=== PATIENT | male | born 1980 | race Caucasian/White ===

== ENCOUNTER → 2018-12-19 14:49 | Outpatient (CLI) | payer SELFPAY ==
[2018-12-19 15:39] LABS: Basophils # 0.1 K/mm3 (0-0.2); Basophils % 1.3 % (0.1-2.0); Eosinophils # 0.2 K/mm3 (0.0-0.4); Eosinophils % 2.5 % (0.1-12.0); Hemoglobin 13.2 g/dL (14.1-18.0); Lymphocytes # 2.4 K/mm3 (0.7-4.5); Lymphocytes % 29.9 % (10-50); Mean Corpuscular HGB Conc 33.1 g/dL (31.8-35.4); Mean Corpuscular Hemoglobin 32.5 pg (27.0-31.2); Mean Corpuscular Volume 98.2 fl (80-94); Mean Platelet Volume 7.2 fl (7.4-10.4); Monocytes # 0.4 K/mm3 (0.1-1.0); Monocytes % 5.4 % (1.7-9.3); Neutrophils # 4.9 K/mm3 (1.8-7.8); Neutrophils % 60.9 % (37.0-80.0); Platelet Count 319 K/mm3 (142-424); Red Blood Count 4.07 M/mm3 (4.60-6.20); Red Cell Distribution Width 14.1 % (11.5-17.5)
[2018-12-19 15:48] LABS: Albumin Level 3.5 gm/dL (3.4-5.0); Albumin/Globulin Ratio 1.2 (1.1-1.8); Alkaline Phosphatase 46 U/L (46-116); Anion Gap 13.3 mEq/L (5-15); Bilirubin,Total 0.5 mg/dL (0.2-1.0); Blood Urea Nitrogen 14 mg/dL (7-18); CKMB Relative Index 0.4 U/L (0-4.0); Calcium 8.6 mg/dL (8.5-10.1); Carbon Dioxide 28 mmol/L (21.0-32.0); Chloride 101 mmol/L (98-107); Creatine Kinase 1435 U/L (39-308); Creatine Kinase MB 5.4 ng/ml (0.0-3.6); Creatinine,Serum 1.08 mg/dL (0.70-1.30); Estimated Glomerular Filt Rate 76 ml/min (>60); GFR (African American) 92 ML/MIN (>60); Glucose 112 mg/dL (74-106); Sodium 138 mmol/L (136-145); Total Protein,Serum 6.5 gm/dL (6.4-8.2); Troponin I < 0.02 ng/ml (0.00-0.06)
[2018-12-19 15:49] LABS: Potassium 4.3 mmoL/L (3.5-5.1)
[2018-12-19 15:59] LABS: Alanine Aminotransferase 29 U/L (12-78); Aspartate Amino Transferase 38 U/L (15-37)
== END ==
PROVIDERS: PCP Family Medicine; Visit Provider Physician Assistant
DX: R07.9 Chest pain, unspecified (principal)
CPT/HCPCS: 36415; 80053; 82550; 82553; 84484; 85025; 93005

== ENCOUNTER 2019-04-19 20:19 | Inpatient (IN) ==
[2019-04-19 20:43] LABS: Basophils # 0.1 K/mm3 (0-0.2); Basophils % 0.6 % (0.1-2.0); Eosinophils # 0.2 K/mm3 (0.0-0.4); Eosinophils % 1.8 % (0.1-12.0); Hematocrit 37.8 % (42.0-52.0); Lymphocytes # 2.5 K/mm3 (0.7-4.5); Lymphocytes % 24.9 % (10-50); Mean Corpuscular HGB Conc 31.9 g/dL (31.8-35.4); Mean Corpuscular Volume 97.9 fl (80-94); Mean Platelet Volume 7.5 fl (7.4-10.4); Monocytes # 0.4 K/mm3 (0.1-1.0); Monocytes % 3.5 % (1.7-9.3); Neutrophils # 6.9 K/mm3 (1.8-7.8); Neutrophils % 69.2 % (37.0-80.0); Platelet Count 329 K/mm3 (142-424); Red Blood Count 3.86 M/mm3 (4.60-6.20); Red Cell Distribution Width 13.7 % (11.5-17.5); White Blood Count 9.9 K/mm3 (4.8-10.8)
--- NOTE | 2019-04-19 20:44 | Emergency Department Note ---
ED Disposition Clinical Impression: ST elevation myocardial infarction (STEMI) Qualifiers: Involved coronary artery: unspecified coronary artery Qualified Code(s): I21.3 - ST elevation (STEMI) myocardial infarction of unspecified site Disposition: Admitted As Inpatient Condition on Discharge: Serious - Critical Care Critical Care Time: Yes Attestation: On , the high probability of a clinically significant, sudden or life threatening deterioration of the following system(s) required my full and direct attention, intervention and personal management. The time I documented below is in addition to time spent performing reported procedures but includes the following listed in this critical care notation. Total Critical Care Time: 60 Vital system(s) involved:: Circulatory Failure My critical care processes included: Assessment & monitoring of V/S, Initial and Re-exams, Data Review/Interpretation, Coordinating Care, Medication Orders and management, Documentation Medical Decision Making - Medical Records Medical records reviewed: Yes: I reviewed the patient's medical records. - [place] Inquiry Pt receiving controlled substance: No Vital Signs: 04/19/19 20:19 04/19/19 20:41 Temperature 98.3 F Temperature Source Oral Pulse Rate [Right Brachial] 96 H 92 H Respiratory Rate 18 18 Blood Pressure [Right Arm] 156/103 H 143/100 H Blood Pressure Mean [Right Arm] 120 114 Blood Pressure Source [Right Arm] Automatic Cuff Automatic Cuff Blood Pressure Position [Right Arm] Sitting Supine 02 Sat by Pulse Oximetry 96 90 L Oxygen Delivery Method Room Air Room Air - Lab Data Lab results reviewed: Yes: I reviewed the patient's lab results. Lab Results 04/19/19 20:20: WBC 9.9, RBC 3.86 L, Hgb 12.0 L, Hct 37.8 L, MCV 97.9 H, MCH 31.2, MCHC 31.9, RDW 13.7, Plt Count 329, MPV 7.5, Neut % (Auto) 69.2, Lymph % (Auto) 24.9, [place] % (Auto) 3.5, Eos % (Auto) 1.8, Baso % (Auto) 0.6, Neut # (Auto) 6.9, Lymph # (Auto) 2.5, [place] # (Auto) 0.4, Eos # (Auto) 0.2, Baso # (Auto) 0.1 04/19/19 20:20: Sodium 132 L, Potassium 3.7, Chloride 97 L, Carbon Dioxide 23, Anion Gap 15.7 H, BUN 14, Creatinine 1.19, Estimated Creat Clear 127, Estimated GFR 68, Est GFR ( Amer) 82, Glucose 143 H, Calcium 8.7, Troponin I 0.13 H 04/19/19 20:20: PT 9.6, INR 0.92, APTT 26.9 Result diagrams: 04/19/19 20:20 04/19/19 20:20 Orders (Tests/Meds): ED MEDICATIONS Generic Name Dose Route Start Last Admin Trade Name Freq PRN Reason Stop Dose Admin Ticagrelor 90 mg 04/19/19 21:00 04/19/19 20:26 Brilinta 90mg Tablet PO 05/19/19 20:59 90 mg BID BRENNAN Administration Discontinued Medications Generic Name Dose Route Start Last Admin Trade Name Freq PRN Reason Stop Dose Admin Aspirin 324 mg 04/19/19 20:36 04/19/19 20:22 Aspirin 81mg Chewable Tablet PO 04/19/19 20:37 324 mg ONCE ONE Administration Heparin Sodium (Porcine) 7,500 unit 04/19/19 20:30 04/19/19 20:31 Heparin 1,000 Units/Ml 10ml Vial (Business Administration Instructor) IV 04/19/19 20:31 7,500 unit ONCE ONE Administration Morphine Sulfate 4 mg 04/19/19 20:28 04/19/19 20:20 Morphine 4mg/Ml Syringe IV 04/19/19 20:29 4 mg ONCE ONE Administration ORDERS Category Date Time Status XR chest portable Stat Exams 04/19/19 20:26 Taken - Radiology Data #1 Image(s): Chest Image Reviewed: Yes I reviewed the patient's radiology image Preliminary Findings: Normal/NAD - ECG Data Tracing #1 Normal Sinus Rhythm: Yes Ischemic changes: acute STEMI - Physician Consults Physician Consulted: rochelle Reason -: Pt condition Additional Consult: malia Reason -: Admission Chest Pain HPI - General Chief Complaint: Chest Pain Stated Complaint: CP Time Seen by Provider: 04/19/19 20:20 Mode of Arrival: Family Vehicle Source of Information: Patient, Spouse, Medical Record Limitations: No Limitations Description of Symptoms (Recalled from ER Triage Doc. by RN): Pt c/o cp that started about an hour ago. - History of Present Illness HPI narrative: acute onset of chest pain about 1 hr ago and brought to ed - no sig medical hx MD complaint: chest pain indicative of cardiac Onset (ago): hour(s) Duration: constant Activity at onset: light activity Pain location: substernal Severity: moderate Risk Factors for CAD: Family Hx of CAD Treatments prior to or on arrival for Cardiac Chest Pain: none - ASHISH Score for Stemi Age of Patient: 40-49 years old Heart Rate: 90-109 bpm Systolic Blood Pressure: 140-159 mmHg Serum Creatinine: 0.80-1.19 mg/dl CHF [place] Class: I-No CHF Other Risk Factors: ST Segment Deviation Stemi Risk Score: 99 - Related Data Home Medications Medication Instructions Recorded Confirmed No Known Home Medications 04/19/19 04/19/19 Allergies Allergy/AdvReac Type Severity Reaction Status Date / Time No Known Allergies Allergy Verified 04/19/19 20:26 [facility] History - Hepatitis A Screen Drug use history?: No High risk sexual behaviors?: No History of sexually transmitted infection?: No Currently employed?: No Childcare worker?: No Do you have indoor plumbing?: No Do you have electricity?: No Attestation statement:: This patient has been screened for Hepatitis A risk factors. I have reviewed the patient's past medical history: Yes ROS Obtained: Yes All systems reviewed & no additional complaints - Constitutional Constitutional: Denies fever(s) - Eyes Eyes: Denies change in vision - ENT Ears, Nose, Mouth, and Throat: Denies sore throat - Cardiovascular Cardiovascular: Reports chest pain, Reports dyspnea - Respiratory Respiratory: No cough - Gastrointestinal Gastrointestingal: Denies: abdominal pain - Genitourinary Male Genitourinary: Denies hematuria - Musculoskeletal Musculoskeletal: Denies joint pain, Denies joint swelling - Integumentary/Breasts Skin/Breast: Denies rash - Neurologic Neurologic: Denies seizure-like activity Physical Exam - General General appearance: alert, obese - Head Head exam: normocephalic - Eye Eye exam: Present: PERRL, EOMI. Absent: scleral icterus - ENT ENT exam: Present: mucous membranes dry - Neck Neck exam: Present: trachea midline - Respiratory Respiratory exam: Present: normal lung sounds bilaterally. Absent: respiratory distress - Cardiovascular Cardiovascular exam: Present: regular rate, systolic murmur. Absent: rubs - Abdominal Exam Abdominal exam: Present: soft - Extremities Exam Extremities exam: Absent: calf tenderness - Neurological Exam Neurological exam: Present: alert, oriented X3, CN II-XII intact - Psychiatric Psychiatric exam: Present: normal affect - Skin Skin exam: Absent: rash
[2019-04-19 20:49] LABS: Anion Gap 15.7 mEq/L (5-15); Calcium 8.7 mg/dL (8.5-10.1)
[2019-04-19 20:50] LABS: Activated Partial Thrombo Time 26.9 seconds (23.6-34.0); INR 0.92 (0.9-1.1); Prothrombin Time 9.6 seconds (9.4-11.8)
--- NOTE | 2019-04-19 23:38 | History & Physical Report ---
*Admission Date: 04/19/19 *Chief complaint: Chest pain *History of present illness: This 39-year-old white male presented to the emergency room at [facility] with chest pain and was found to have an ST elevation IL (acute anteroseptal by EKG). 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 The patient has suffered with chest pain off and on since November. He states that he has had significant chest pain through today. 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 Pain became bad enough that he presented in the emergency room. He takes no medications. He does not take aspirin. He does smoke a pipe. He does have a family history for cardiovascular disease. [facility] History Medical History: Reports:: Coronary Artery Disease (No prior history but he has had chest pain.) *Have you ever received a pneumonia vaccine?: No *Have you received a flu vaccine this season?: No Comment:: He has no prior hospitalizations and takes no medications. Other Surgeries: Yes: No Previous Surgery - *Social History Smoking Status: Current every day smoker (Pipe) Tobacco Type: pipe # Packs/Day (cigarettes): 1 Alcohol Intake: never Substance Use Type: denies use *Occupational Status:: other ([employer]) Housing: house *Travel in the last 8 weeks: None - Psychiatric History Expresses thoughts of harming self/others: None Suicide Plan Description: No Plan Family Hx:: Other Comment: His father at age 54 of a cerebral aneurysm. There is hypertension in the family. His mother is living at age 68. She has had cardiac rhythm disturbances. A grandfather in his 60s of a myocardial infarction. Review of Systems - Constitutional Denies anorexia, Denies fever(s) - Eyes Denies change in vision - ENT Denies abnormal hearing - *Cardiovascular Reports chest pain, Reports chest pain with activity, Reports shortness of breath - *Respiratory Denies chest congestion - *Gastrointestinal Denies abdominal pain - *Genitourinary Denies difficulty urinating - *Musculoskeletal Denies abnormal walking, Denies joint pain - Integumentary/Breasts Denies bleeding lesions - *Neurologic Denies seizure-like activity - Psychiatric Denies behavioral changes Meds Home Medications Medication Instructions Recorded Confirmed Type No Known Home Medications 04/19/19 04/19/19 History Allergies Allergy/AdvReac Type Severity Reaction Status Date / Time No Known Allergies Allergy Verified 04/19/19 20:26 Exam Vital signs and Labs for Last 24 Hours: Temp Pulse Resp BP Pulse Ox 98.8 F 88 16 110/62 95 04/19/19 20:56 04/19/19 22:15 04/19/19 22:15 04/19/19 22:15 04/19/19 22:15 Laboratory Results - last 24 hr 04/19/19 20:20: WBC 9.9, RBC 3.86 L, Hgb 12.0 L, Hct 37.8 L, MCV 97.9 H, MCH 31.2, MCHC 31.9, RDW 13.7, Plt Count 329, MPV 7.5, Neut % (Auto) 69.2, Lymph % (Auto) 24.9, [place] % (Auto) 3.5, Eos % (Auto) 1.8, Baso % (Auto) 0.6, Neut # (Auto) 6.9, Lymph # (Auto) 2.5, [place] # (Auto) 0.4, Eos # (Auto) 0.2, Baso # (Auto) 0.1 04/19/19 20:20: Sodium 132 L, Potassium 3.7, Chloride 97 L, Carbon Dioxide 23, Anion Gap 15.7 H, BUN 14, Creatinine 1.19, Estimated Creat Clear 127, Estimated GFR 68, Est GFR ( Amer) 82, Glucose 143 H, Calcium 8.7, Troponin I 0.13 H 04/19/19 20:20: PT 9.6, INR 0.92, APTT 26.9 04/19/19 21:17: Activated Clotting Time 188 H* 04/19/19 21:25: Activated Clotting Time 357 H* D I & O for Last 24 hours: Intake & Output 04/17/19 04/18/19 04/19/19 04/20/19 11:59 11:59 11:59 11:59 Weight 240 lb 6.548 oz - Constitutional no acute distress Comments: This examination is post cardiac catheterization with stent placement. He is not having discomfort. He states that he feels better than he did when he came in. 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 His family is with him. - *Routine HEENT Exam Head: Present: normocephalic Eye: Present: PERRL ENT: Present: mucous membranes dry - Routine Chest/Breast/Axilla Exam Chest wall: Absent: tenderness - *Routine Respiratory Exam Present: CTA bilaterally - *Routine Cardiovascular Exam Present: RRR (Heart sounds are distant he is thick chested) - *Routine Abdominal Exam Present: soft. Absent: tenderness, organomegaly, mass - *Routine Extremities Exam Present: edema (1+ edema.) - *Routine Skin Exam Present: intact - *Routine Neurological Exam Present: alert, oriented X3 Assessment and Plan (1) ST elevation myocardial infarction (STEMI) Current visit: Yes Status: Acute Qualifiers: Involved coronary artery: unspecified coronary artery Qualified Code(s): I21.3 - ST elevation (STEMI) myocardial infarction of unspecified site Category: Medical Code(s): I21.3 - ST elevation (STEMI) myocardial infarction of unspecified site (2) Coronary artery disease Current visit: Yes Status: Acute Category: Medical Code(s): I25.10 - Atherosclerotic heart disease of [place] coronary artery without angina pectoris (3) Tobacco use Current visit: Yes Status: Acute Category: Medical Code(s): Z72.0 - Tobacco use - Assessment and plan all Dx Assessment and Plan for all problems:: The patient is post stenting. He is on the monitor. See orders.
[2019-04-20 05:56] LABS: Basophils # 0.1 K/mm3 (0-0.2); Basophils % 0.6 % (0.1-2.0); Eosinophils # 0.2 K/mm3 (0.0-0.4); Eosinophils % 1.9 % (0.1-12.0); Hematocrit 38.5 % (42.0-52.0); Hemoglobin 12.1 g/dL (14.1-18.0); Lymphocytes # 2.1 K/mm3 (0.7-4.5); Lymphocytes % 21.8 % (10-50); Mean Corpuscular HGB Conc 31.3 g/dL (31.8-35.4); Mean Corpuscular Volume 98.1 fl (80-94); Mean Platelet Volume 7.9 fl (7.4-10.4); Monocytes # 0.3 K/mm3 (0.1-1.0); Monocytes % 3.6 % (1.7-9.3); Neutrophils # 6.8 K/mm3 (1.8-7.8); Platelet Count 306 K/mm3 (142-424); Red Blood Count 3.93 M/mm3 (4.60-6.20); Red Cell Distribution Width 13.8 % (11.5-17.5); White Blood Count 9.4 K/mm3 (4.8-10.8)
[2019-04-20 06:03] LABS: Anion Gap 13.9 mEq/L (5-15); Calcium 8.4 mg/dL (8.5-10.1)
--- NOTE | 2019-04-20 09:44 | Pharmacy Consult Notes ---
[facility] Pharmacy VTE Monitoring - Patient Demographics Admission date: 04/19/19 Report Date: 04/20/19 Time: 09:44 Allergies/Adverse Reactions: Patient Allergies No Known Allergies Allergy (Verified 04/19/19 20:26) Height: 1.7 m Weight: 111.357 kg Patient Problems: Current Active Problems (Updated 04/19/19 @ 23:50 by Anabel Jose MD) ST elevation myocardial infarction (STEMI) (Acute) Coronary artery disease (Acute) Tobacco use (Acute) - VTE Risk Labs: VTE Related Lab Results Hgb 12.1 g/dL (14.1-18.0) L 04/20/19 05:45 Hct 38.5 % (42.0-52.0) L 04/20/19 05:45 Plt Count 306 K/mm3 (142-424) 04/20/19 05:45 PT 9.6 seconds (9.4-11.8) 04/19/19 20:20 INR 0.92 (0.9-1.1) 04/19/19 20:20 APTT 26.9 seconds (23.6-34.0) 04/19/19 20:20 BUN 11 mg/dL (7-18) 04/20/19 05:45 Creatinine 1.16 mg/dL (0.70-1.30) 04/20/19 05:45 Estimated Creat Clear 133 mL/min (50-200) 04/20/19 05:45 - Prophylaxis VTE Prophylaxis Ordered?: Yes Types of VTE Prophylaxis: TEDS Knee High, Pharmacological Location of Applied Device: Bilateral Lower Extremeties Pharmacologic Type: Other (BRILINTA) - VTE Diagnosis Confirmed Treatment or plan recommended: Continue Current Treatment
--- NOTE | 2019-04-20 13:18 | Progress Note ---
Internal Medicine - PN: Subj *Date: 04/20/19 *Time: 13:16 Interval history: He has remained stable overnight. He will occasionally show a wide-complex ectopic, but he has had no runs of dysrhythmia. He has had no chest pain no distress. Exam Vital signs and Labs for Last 24 Hours: Temp Pulse Resp BP Pulse Ox 98.1 F 77 19 120/81 98 04/20/19 11:42 04/20/19 12:00 04/20/19 12:00 04/20/19 12:00 04/20/19 12:00 Laboratory Results - last 24 hr 04/19/19 20:20: WBC 9.9, RBC 3.86 L, Hgb 12.0 L, Hct 37.8 L, MCV 97.9 H, MCH 31.2, MCHC 31.9, RDW 13.7, Plt Count 329, MPV 7.5, Neut % (Auto) 69.2, Lymph % (Auto) 24.9, [place] % (Auto) 3.5, Eos % (Auto) 1.8, Baso % (Auto) 0.6, Neut # (Auto) 6.9, Lymph # (Auto) 2.5, [place] # (Auto) 0.4, Eos # (Auto) 0.2, Baso # (Auto) 0.1 04/19/19 20:20: Sodium 132 L, Potassium 3.7, Chloride 97 L, Carbon Dioxide 23, Anion Gap 15.7 H, BUN 14, Creatinine 1.19, Estimated Creat Clear 127, Estimated GFR 68, Est GFR ( Amer) 82, Glucose 143 H, Calcium 8.7, Troponin I 0.13 H 04/19/19 20:20: PT 9.6, INR 0.92, APTT 26.9 04/19/19 21:17: Activated Clotting Time 188 H* 04/19/19 21:25: Activated Clotting Time 357 H* D 04/20/19 05:45: WBC 9.4, RBC 3.93 L, Hgb 12.1 L, Hct 38.5 L, MCV 98.1 H, MCH 30.7, MCHC 31.3 L, RDW 13.8, Plt Count 306, MPV 7.9, Neut % (Auto) 72.0, Lymph % (Auto) 21.8, [place] % (Auto) 3.6, Eos % (Auto) 1.9, Baso % (Auto) 0.6, Neut # (Auto) 6.8, Lymph # (Auto) 2.1, [place] # (Auto) 0.3, Eos # (Auto) 0.2, Baso # (Auto) 0.1 04/20/19 05:45: Sodium 140, Potassium 3.9, Chloride 103, Carbon Dioxide 27, Anion Gap 13.9, BUN 11, Creatinine 1.16, Estimated Creat Clear 133, Estimated GFR 70, Est GFR ( Amer) 84, Glucose 105 D, Calcium 8.4 L I & O for Last 24 hours: Intake & Output 04/18/19 04/19/19 04/20/19 04/21/19 11:59 11:59 11:59 11:59 Intake Total 840 / 840 Balance 840 / 840 Weight 245 lb 8 oz - Constitutional no acute distress - *Routine HEENT Exam Head: Present: normocephalic Eye: Present: PERRL ENT: Present: mucous membranes moist - *Routine Respiratory Exam Present: CTA bilaterally - *Routine Cardiovascular Exam Present: RRR - *Routine Abdominal Exam Present: soft. Absent: tenderness - *Routine Extremities Exam Present: edema (Still with trace to 1+ edema.) - *Routine Neurological Exam Present: alert, oriented X3 Assessment and Plan (1) ST elevation myocardial infarction (STEMI) Current visit: Yes Status: Acute Qualifiers: Involved coronary artery: unspecified coronary artery Qualified Code(s): I21.3 - ST elevation (STEMI) myocardial infarction of unspecified site Category: Medical Code(s): I21.3 - ST elevation (STEMI) myocardial infarction of unspecified site (2) Coronary artery disease Current visit: Yes Status: Acute Category: Medical Code(s): I25.10 - Atherosclerotic heart disease of [place] coronary artery without angina pectoris (3) Tobacco use Current visit: Yes Status: Acute Category: Medical Code(s): Z72.0 - Tobacco use - Assessment and plan all Dx Assessment and Plan for all problems:: He is transferred out of stepdown. Will maintain telemetry.
--- NOTE | 2019-04-21 08:26 | Progress Note ---
<Sheyla Armando - Last Filed: 04/21/19 08:23> Internal Medicine - PN: Subj *Date: 04/21/19 *Time: 08:23 Interval history: Patient currently feels weak. He states he had a good day yesterday and ambulated without difficulty. He is eating without problems. He denies chest pain. He is sometimes short of breath. He slept well last night. Blood pressure this morning is 96/54. Exam Vital signs and Labs for Last 24 Hours: Temp Pulse Resp BP Pulse Ox 98.6 F 75 18 96/54 L 95 04/21/19 08:00 04/21/19 08:00 04/21/19 08:00 04/21/19 08:00 04/21/19 08:00 I & O for Last 24 hours: Intake & Output 04/18/19 04/19/19 04/20/19 04/21/19 11:59 11:59 11:59 11:59 Intake Total 840 / 840 1000 / 1000 Balance 840 / 840 1000 / 1000 Weight 245 lb 8 oz 238 lb 1 oz Radiology Reports for the Last 24 Hours: 04/10/2019 cardiac cath IMPRESSION: 1. Severe coronary artery disease with critical stenosis noted in the proximal and mid left anterior descending with LUIS MIGUEL I distal flow and critical stenosis in the large dominant right coronary artery in its midportion with LUIS MIGUEL II flow to the posterior descending artery and posterior lateral branches. 2. Preserved normal left ventricular systolic function 3. Normal left ventricular end-diastolic pressure 4. Successful angioplasty and stenting of the proximal and distal large dominant right coronary artery with resolute drug-eluting stents resulting in 0% residual stenosis in anabaptism of normal flow 5. Successful angioplasty and stenting of the proximal and mid left anterior descending with resolute drug-eluting stents resulting in 0% residual stenosis in anabaptism of normal flow 6. Successful placement of an Angio-Seal device in the right common femoral artery PLAN: 1. Brilinta 180 mg x1 was given in the emergency room and will be followed x 90 mg twice daily 2. Echocardiogram, serial EKGs and enzymes 3. Aspirin 81 mg daily 4. Aggressive risk factor modification including LDL cholesterol less than 70 - Constitutional no acute distress Comments: Awakened from sleep for exam - *Routine Respiratory Exam Present: CTA bilaterally (Anteriorly and posteriorly) - *Routine Cardiovascular Exam Present: RRR Comments: Monitor showing sinus rhythm - *Routine Abdominal Exam Present: soft, normoactive bowel sounds. Absent: tenderness, distended - *Routine Extremities Exam Absent: edema, calf tenderness - *Routine Neurological Exam Present: alert, oriented X3 Assessment and Plan (1) ST elevation myocardial infarction (STEMI) Current visit: Yes Status: Acute Qualifiers: Involved coronary artery: unspecified coronary artery Qualified Code(s): I21.3 - ST elevation (STEMI) myocardial infarction of unspecified site Category: Medical Code(s): I21.3 - ST elevation (STEMI) myocardial infarction of unspecified site (2) Coronary artery disease Current visit: Yes Status: Acute Category: Medical Code(s): I25.10 - Atherosclerotic heart disease of [place] coronary artery without angina pectoris (3) Tobacco use Current visit: Yes Status: Acute Category: Medical Code(s): Z72.0 - Tobacco use - Assessment and plan all Dx Assessment and Plan for all problems:: Discussed smoking cessation with the patient. Will need echocardiogram. <Gustavo Carl - Last Filed: 04/21/19 09:04> Internal Medicine - PN: Subj *Date: 04/21/19 *Time: 09:04 Exam Vital signs and Labs for Last 24 Hours: Temp Pulse Resp BP Pulse Ox 98.6 F 75 18 96/54 L 95 04/21/19 08:00 04/21/19 08:00 04/21/19 08:00 04/21/19 08:00 04/21/19 08:00 I & O for Last 24 hours: Intake & Output 04/18/19 04/19/19 04/20/19 04/21/19 23:59 23:59 23:59 23:59 Intake Total 1840 / 1840 480 / 480 Balance 1840 / 1840 480 / 480 Weight 240 lb 6.548 oz 245 lb 8 oz 238 lb 1 oz Assessment and Plan (1) ST elevation myocardial infarction (STEMI) Current visit: Yes Status: Acute Qualifiers: Involved coronary artery: unspecified coronary artery Qualified Code(s): I21.3 - ST elevation (STEMI) myocardial infarction of unspecified site Category: Medical Code(s): I21.3 - ST elevation (STEMI) myocardial infarction of unspecified site (2) Coronary artery disease Current visit: Yes Status: Acute Category: Medical Code(s): I25.10 - Atherosclerotic heart disease of [place] coronary artery without angina pectoris (3) Tobacco use Current visit: Yes Status: Acute Category: Medical Code(s): Z72.0 - Tobacco use - Assessment and plan all Dx Assessment and Plan for all problems:: Saw patient, agree with above note.
--- NOTE | 2019-04-21 08:38 | Consult Report ---
History of Present Illness Consult date: 04/21/19 Requesting physician: Anabel Jose Consult reason: chest pain Chief complaint: STEMI Additional Medical History:: 1. Pipe tobacco use 2. STEMI, 03/2019 A. [facility], 03/2019, Dr. Felton Cardenas, ANGIOGRAPHIC RESULTS: 1. The left main artery normal 2. The left anterior descending artery 99% proximal stenosis with LUIS MIGUEL I flow to the mid and distal vessel. Thrombus was noted in the proximal portion. Sequential 80% mid stenosis. 3. The circumflex artery large in size with mild aneurysmal dilation and 40% eccentric mid stenosis 4. The right coronary artery large in size and dominant. 99.9% mid stenosis with LUIS MIGUEL II flow to the posterior descending and posterior lateral branches 5. The ALLEN ventriculogram reveals normal left ventricular systolic function with an ejection fraction of 55-60% 6. The left ventricular end-diastolic pressure 12 I started the procedure with a Lilibeth right number forgot catheter with sideholes. Lesion seen in the right coronary artery as above. ACT checked. Additional 3000 of heparin given with a resultant ACT greater than 330. Crossed with a choice PT wire. Primary stenting was done first in the proximal vessel with a resolute drug-eluting stent. This resulted in 0% residual stenosis. There was moderate ectasia and severe stenosis in the distal right coronary artery. Resolute drug-eluting stent placed without difficulty. Angiography of the left anterior descending and circumflex as above. Guidewire used to access left main coronary artery. Choice PT wire used to cross in the left anterior descending. Primary stenting done to the proximal left anterior descending with a resolute drug-eluting stent followed by angioplasty and stenting of the mid left anterior descending with a drug-eluting stent. Resulted in hinduism of normal flow in both arteries. Left ventricular function preserved with normal left ventricular end-diastolic pressure. Angio-Seal placed without difficulty IMPRESSION: 1. Severe coronary artery disease with critical stenosis noted in the proximal and mid left anterior descending with LUIS MIGUEL I distal flow and critical stenosis in the large dominant right coronary artery in its midportion with LUIS MIGUEL II flow to the posterior descending artery and posterior lateral branches. 2. Preserved normal left ventricular systolic function 3. Normal left ventricular end-diastolic pressure 4. Successful angioplasty and stenting of the proximal and distal large dominant right coronary artery with resolute drug-eluting stents resulting in 0% residual stenosis in hinduism of normal flow 5. Successful angioplasty and stenting of the proximal and mid left anterior descending with resolute drug-eluting stents resulting in 0% residual stenosis in hinduism of normal flow 6. Successful placement of an Angio-Seal device in the right common femoral artery PLAN: 1. Brilinta 180 mg x1 was given in the emergency room and will be followed x 90 mg twice daily 2. Echocardiogram, serial EKGs and enzymes 3. Aspirin 81 mg daily 4. Aggressive risk factor modification including LDL cholesterol less than 70 History of present illness: This 39-year-old white male presented to the emergency room at [facility] with chest pain and was found to have an ST elevation SD (acute anteroseptal by EKG). 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 The patient has suffered with chest pain off and on since November. He states that he has had significant chest pain through today. 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 Pain became bad enough that he presented in the emergency room. He takes no medications. He does not take aspirin. He does smoke a pipe. He does have a family history for cardiovascular disease. The above per Dr. Jose [facility] History Medical History: Reports:: Coronary Artery Disease (No prior history but he has had chest pain.) *Have you ever received a pneumonia vaccine?: No *Have you received a flu vaccine this season?: No Other Medical History: Reports: Anemia Other Surgeries: Yes: No Previous Surgery - *Social History Smoking Status: Current every day smoker Tobacco Type: pipe # Packs/Day (cigarettes): 0 Alcohol Intake: never Substance Use Type: denies use *Occupational Status:: other Housing: house *Travel in the last 8 weeks: None - Psychiatric History Expresses thoughts of harming self/others: None Suicide Plan Description: No Plan Family Hx:: Other Meds Home Medications Medication Instructions Recorded Confirmed Type No Known Home Medications 04/19/19 04/19/19 History Allergies Allergy/AdvReac Type Severity Reaction Status Date / Time No Known Allergies Allergy Verified 04/19/19 20:26 Review of Systems - *Cardiovascular Reports chest pain, Reports shortness of breath with activity - *Respiratory Reports shortness of breath with activity, Denies cough - *Gastrointestinal Denies abdominal pain, Denies vomiting - *Genitourinary Denies blood in urine - *Musculoskeletal Denies joint pain, Denies back pain - *Neurologic Denies abnormal walking, Denies abnormal hearing, Denies behavioral changes, Denies seizure-like activity Exam Vital signs and Labs for Last 24 Hours: Temp Pulse Resp BP Pulse Ox 98.6 F 75 18 96/54 L 95 04/21/19 08:00 04/21/19 08:00 04/21/19 08:00 04/21/19 08:00 04/21/19 08:00 I & O for Last 24 hours: Intake & Output 04/18/19 04/19/19 04/20/19 04/21/19 11:59 11:59 11:59 11:59 Intake Total 840 / 840 1000 / 1000 Balance 840 / 840 1000 / 1000 Weight 245 lb 8 oz 238 lb 1 oz - *Routine HEENT Exam Head: Present: normocephalic Eye: Present: EOMI, PERRL ENT: Present: mucous membranes moist - *Routine Neck Exam Present: supple. Absent: JVD, carotid bruit - *Routine Respiratory Exam Present: CTA bilaterally. Absent: accessory muscle use, rales, rhonchi, wheezes - *Routine Cardiovascular Exam Present: RRR. Absent: murmur, gallop, rubs - *Routine Abdominal Exam Present: soft. Absent: tenderness, distended, guarding - *Routine Extremities Exam Absent: edema, calf tenderness - *Routine Neurological Exam Present: alert, oriented X3, moving all extremities Assessment and Plan (1) ST elevation myocardial infarction (STEMI) Current visit: Yes Status: Acute Qualifiers: Involved coronary artery: unspecified coronary artery Qualified Code(s): I21.3 - ST elevation (STEMI) myocardial infarction of unspecified site Category: Medical Code(s): I21.3 - ST elevation (STEMI) myocardial infarction of unspecified site (2) Coronary artery disease Current visit: Yes Status: Acute Category: Medical Code(s): I25.10 - Atherosclerotic heart disease of minto coronary artery without angina pectoris (3) Tobacco use Current visit: Yes Status: Acute Category: Medical Code(s): Z72.0 - Tobacco use - Assessment and plan all Dx Assessment and Plan for all problems:: 1. STEMI with 4 ELVA placed in the LAD and RCA. Continue ASA and Brilinta. 2. Continue statin therapy due to CAD. 3. Preliminary echo this AM shows LVEF of about 45-50%. Pt Systolic BP this AM is in the 90's on no NIKKI/ARB or BB therapy. Recommend ambulating in ruth today with BP checks. If stable, then discharge home later today with follow up next week. No arrythmias in the last 24 hrs.
[2019-04-21 13:49] LABS: Chol/HDL Ratio 11.4 (1-3.5); Cholesterol 318 mg/dL (140-200); HDL Cholesterol 28 mg/dL (27-67); Triglycerides 466 mg/dL (30-200)
--- NOTE | 2019-04-21 20:56 | Cardiology Report ---
PROCEDURE: 2-D M-mode and color Doppler study INDICATIONS FOR THE TEST: Chest pain+ COPD Heart Murmur Tobacco Smoking+ Palpitations Fatigue Syncope Edema+ Hypertension Diabetes Mellitus? Rheumatic Fever SOB HAWLEY Obesity+Hyperlipidemia Family History HD+ Additional History STEMI 04/19/19, 4 cardiac stents placed PATIENT INFORMATION HEIGHT: 67 WEIGHT: 238 GENDER: Male B/P: 102/58 2-D/M-MODE INTERPRETATION: 2-D MEASUREMENTS OBSERVED VALUES IN CMS Right Ventricular Dimension (RVDd) 1.6 Interventricular Septum (Thickness)(IVsd) 0.9 Left Ventricular Internal Dimensions(LVIDd) 5.6 Left Ventricular Posterior Wall (Thickness)(LVPWd) 0.9 Aortic Root 3.3 Aortic Cusp Separation 2.3 Left Atrial Dimensions (LAD) 3.8 2D 1. Left atrium is mildly enlarged, left ventricle is normal size, mild concentric left ventricular hypertrophy, visually estimated ejection fraction approximately 40-45%, there is moderate hypokinesis involving mid to distal septum, anterior apical and apical wall. 2. The right atrium and right ventricle are normal size and contractility. 3. The morphology of the aortic valve is not well visualized thickened and calcified. 4. The mitral and tricuspid valvular grossly normal. 5. The pulmonic valve is poorly visualized. 6. No significant pericardial effusion noted. DOPPLER INTERROGATION: 1. The maximum aortic out flow velocity recorded study 2.4 m/s, resulting in a mean gradient across valve of 14 mmHg, this represents mild aortic stenosis, there is at least moderate to severe aortic insufficiency present. If clinically indicated transesophageal echocardiogram is recommended for further evaluation of the aortic valve disease. 2. The mitral inflow velocity within normal range, there is no mitral stenosis, there is mild mitral regurgitation, grade 1 diastolic dysfunction seen tissue Doppler evidence of raised left atrial pressure. 3. Mild tricuspid regurgitation, tricuspid regurgitation jet velocity is inadequate for calculation of the right ventricular systolic pressure. CONCLUSION: 1. Mildly enlarged left atrium, normal left ventricular size, mild concentric left ventricular hypertrophy, visually estimated ejection fraction of 40-45% with segmental wall motion abnormality described above, grade 1 diastolic dysfunction seen with tissue Doppler evidence of raised left atrial pressure. 2. Abnormally aortic valve is described above, there is mild aortic stenosis, there is moderate to severe aortic insufficiency, a transesophageal echocardiogram is recommended to evaluate the aortic valve disease. 3. Mild mitral and tricuspid regurgitation. 4. No significant pericardial effusion noted, inferior vena cava is normal size with normal inspiratory collapse.
--- NOTE | 2019-04-21 22:33 | Discharge Summary ---
General - General Admission date:: 04/19/19 Discharge date: 04/21/19 HPI HPI: This 39-year-old white male presented to the emergency room at [facility] with chest pain and was found to have an ST elevation [place] (acute anteroseptal by EKG). 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 The patient has suffered with chest pain off and on since November. He states that he has had significant chest pain through today. 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 The pain became bad enough that he presented in the emergency room. He takes no medications. He does not take aspirin. He does smoke a pipe. He does have a family history for cardiovascular disease. Hospital Course Hospital Course: The patient was started on Brilinta and aspirin. He remained stable throughout the night and occasionally showed a wide-complex ectopic on his telemetry but h ad no runs of dysrhythmia. He had no further chest pain or distress. He was able to be transferred out of stepdown. He was able to get up and ambulate without difficulty. He was eating without problems. An echo was ordered and it showed an ejection fraction of 45 to 50%. The patient's blood pressure was low and he was on no NIKKI/ARB or BB therapy. Cardiology felt he was stable to be discharged home and will need to follow-up with them later on in the week. Objective Vital signs: Temp Pulse Resp BP Pulse Ox 98.1 F 80 16 125/74 100 04/21/19 11:40 04/21/19 12:11 04/21/19 11:40 04/21/19 11:40 04/21/19 11:40 Narrative: - Constitutional no acute distress Comments: This examination is post cardiac catheterization with stent placement. He is not having discomfort. He states that he feels better than he did when he came in. 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 His family is with him. - *Routine HEENT Exam Head: Present: normocephalic Eye: Present: PERRL ENT: Present: mucous membranes dry - Routine Chest/Breast/Axilla Exam Chest wall: Absent: tenderness - *Routine Respiratory Exam Present: CTA bilaterally - *Routine Cardiovascular Exam Present: RRR (Heart sounds are distant he is thick chested) - *Routine Abdominal Exam Present: soft. Absent: tenderness, organomegaly, mass - *Routine Extremities Exam Present: edema (1+ edema.) - *Routine Skin Exam Present: intact - *Routine Neurological Exam Present: alert, oriented X3 Results Labs on day of discharge: Labs from last 24 hours 04/20/19 05:45 Triglycerides 466 H Cholesterol 318 H HDL Cholesterol 28 Cholesterol/HDL Ratio 11.4 H DS: Diagnosis - Discharge Diagnosis (1) ST elevation myocardial infarction (STEMI) Status: Acute (2) Coronary artery disease Status: Acute (3) Tobacco use Status: Acute Discharge Plan - Patient Discharge Instructions ACTIVITY: Continue current activity DIET: continue same diet Patient Instructions: DI for Heart Attack, Heart-Healthy Diet, DI for Angina, DI for Cardiac Catheterization, DI for Coronary Stenting, DI for Surgical Site Infection - Follow up Plan Follow up with: Gustavo Carl MD [Primary Care Provider] - (as needed) Joshua Hanson MD [Staff Physician] - 04/29/19 1:30 pm Disposition: Home, Self-[facility] Medications: Home Medications Medication Instructions Recorded Confirmed Type No Known Home Medications 04/19/19 04/19/19 History Aspirin [Aspirin 81mg EC Tab] 81 mg PO DAILY #30 tablet. 04/21/19 Rx Atorvastatin Calcium [Lipitor 40mg 40 mg PO HS #30 tab 04/21/19 Rx Tablet] Ticagrelor [Brilinta 90mg Tablet] 90 mg PO BID #60 tab 04/21/19 Rx Prescriptions/Medication Reconciliation: New Ticagrelor [Brilinta 90mg Tablet] 90 mg PO BID #60 tab Aspirin [Aspirin 81mg EC Tab] 81 mg PO DAILY #30 tablet. Atorvastatin Calcium [Lipitor 40mg Tablet] 40 mg PO HS #30 tab No Action No Known Home Medications
== END 2019-04-21 14:50 | disposition home or self-care (01) | DRG 246 ==
LOC: ER 20:19 → CATHLAB 21:21 → 2ND 21:25
PROVIDERS: ADMIT Family Medicine; ATTEND Family Medicine
CPT/HCPCS: 71010; 71045; 80048; 80061; 84484; 85025; 85347; 85610; 85730; 92928; 92929; 93005; 93306; 96367; 96374; 99152; 99153; 99284; C1725; C1760; C1769; C1876; C1894; C9600; C9601; J1644; Q9967

== ENCOUNTER → 2019-04-29 10:11 | Outpatient (CLI) | payer SELFPAY ==
[2019-04-29 10:26] LABS: Hematocrit 35.5 % (42.0-52.0); Hemoglobin 11.2 g/dL (14.1-18.0)
[2019-04-29 10:53] LABS: Blood Urea Nitrogen 15 mg/dL (7-18); Creatinine,Serum 1.14 mg/dL (0.70-1.30); Estimated Glomerular Filt Rate 71 ml/min (>60); GFR (African American) 86 ML/MIN (>60)
== END ==
PROVIDERS: Visit Provider Internal Medicine
DX: R06.09 Other forms of dyspnea (principal); I25.10 Atherosclerotic heart disease of native coronary artery without angina pectoris; I21.3 ST elevation (STEMI) myocardial infarction of unspecified site; I35.1 Nonrheumatic aortic (valve) insufficiency; Z72.0 Tobacco use
CPT/HCPCS: 36415; 82565; 84520; 85014; 85018